=== PATIENT | female | born 1995 | race Two or more races ===

== ENCOUNTER 2022-01-26 19:26 | Emergency (ER) | payer SELFPAY ==
[~2022-01-26] VITALS: Ht 154.9 cm; Wt 63.5 kg
[2022-01-26 19:26] VITALS: BP 115/73
[2022-01-26] MEDS ORDERED: IBU600T PO (19:51)
== END 2022-01-26 22:53 | disposition home or self-care (01) ==
LOC: ER 19:26
DX: S66.911A Strain of unspecified muscle, fascia and tendon at wrist and hand level, right hand, initial encounter (principal); M79.10 Myalgia, unspecified site; W22.8XXA Striking against or struck by other objects, initial encounter; Y93.89 Activity, other specified; Y92.89 Other specified places as the place of occurrence of the external cause; Y99.8 Other external cause status
CPT/HCPCS: 73090; 73100; 81025